=== PATIENT | male | born 1975 | race African-American/Black ===

== ENCOUNTER 2017-08-25 11:34 | Emergency (ER) | payer OTHER ==
[~2017-08-25] VITALS: Ht 185.4 cm; Wt 78.6 kg
[~2017-08-25 11:34] MED LIST: MOTRIN600 MG PO
[2017-08-25] MEDS ORDERED: FLEXERIL10 MG PO (12:35)
[2017-08-25] MEDS ORDERED: NAPROSYN500 MG PO (12:35)
[2017-08-25 12:43] VITALS: BP 147/83
== END 2017-08-25 12:43 | disposition home or self-care (01) ==
LOC: EME 11:34
DX: M25.512 Pain in left shoulder (principal); V47.1XXA Car passenger injured in collision with fixed or stationary object in nontraffic accident, initial encounter; Y92.410 Unspecified street and highway as the place of occurrence of the external cause
CPT/HCPCS: 73030; 99281; 99283